=== PATIENT | male | born 1995 | race Two or more races ===

== ENCOUNTER 2024-09-25 18:13 | Emergency (ER) | payer MEDICAID ==
[~2024-09-25] VITALS: Ht 167.6 cm; Wt 61.0 kg
[2024-09-25 18:39] VITALS: TEMP 98.8
[2024-09-25] MEDS: HYDROCODONE/ACETAMINOPHEN 5-325 MG TABLET PO ONE (20:21)
[2024-09-25] MEDS: BUPIVACAINE HCL/PF 0.25% 10 ML VIAL IARTIC ONE (20:21)
[2024-09-25] MEDS: LIDOCAINE 1% 10 ML VIAL IARTIC ONE (20:21)
[2024-09-25 21:24] VITALS: BP 109/61; PULSE 60; RESP 15; O2SAT 99
== END 2024-09-25 21:25 | disposition home or self-care (01) ==
LOC: EMS 18:13
DX: S62.324A Displaced fracture of shaft of fourth metacarpal bone, right hand, initial encounter for closed fracture (principal); S62.326A Displaced fracture of shaft of fifth metacarpal bone, right hand, initial encounter for closed fracture; W22.09XA Striking against other stationary object, initial encounter; Y93.89 Activity, other specified; Y92.89 Other specified places as the place of occurrence of the external cause; Y99.8 Other external cause status
CPT/HCPCS: 99284; 26605; 73130; J3490 ×2